=== PATIENT | female | born 1980 | race Caucasian/White ===

== ENCOUNTER → 2017-02-06 | Outpatient (CLI) | payer OTHER | LOC: MC.RAD 13:58 | DX: N63.20 Unspecified lump in the left breast, unspecified quadrant (principal) ==

== ENCOUNTER 2018-10-02 10:17 | Day surgery (SDC) | payer OTHER ==
[~2018-10-02] VITALS: Ht 162.6 cm; Wt 64.5 kg
[2018-10-02] MEDS ORDERED: CYMBALTA 30MG30 MG PO (11:00)
[2018-10-02] MEDS ORDERED: TUMS500 MG PO (11:03)
[2018-10-02] MEDS ORDERED: PROVENTIL0.09 MG/A1 IH (11:04)
[2018-10-02 12:48] VITALS: BP 136/69; PULSE 72; TEMP 97.4
--- NOTE | 2018-10-02 12:52 | NUR ---
Pt taken via cart to OR by MAXINE Richter RN.
[2018-10-02] MEDS ORDERED: PERCOCET 325 MG1 TA2 PO (14:09)
[2018-10-02] MEDS ORDERED: COLACE 100100 MG/CAP PO (14:09)
[2018-10-02 14:40] VITALS: BP 140/74; PULSE 80; TEMP 98.6
--- NOTE | 2018-10-02 14:40 | NUR ---
Pt returned via cart from PACU to [place] [facility]. A&O. Lying on left side. VSS-see flowsheet. brought in to room at this time. x4 surgical site incisions noted with swiftset clean, dry and intact. Denies nausea, reports mild pain in abdomen and feeling bloated. Pt refused intervention at this time. Requested grape juice and apple sauce. Side rails up, call light in reach.
[2018-10-02 14:55] VITALS: BP 122/58; PULSE 79
[2018-10-02 15:10] VITALS: BP 131/72; PULSE 75
[2018-10-02 15:25] VITALS: BP 133/74; PULSE 82
--- NOTE | 2018-10-02 16:00 | NUR ---
Pt tolerated juice, apple sauce and crackers. VSS-see flowsheet. Able to void without difficulty. Incisions remain c/d/i. IV removed, gauze and coban applied. Discharge teaching completed, pt verbalized understanding. Taken via wheelchair to private vehicle for dc home with to drive.
== END 2018-10-02 16:00 | disposition home or self-care (01) ==
LOC: SDCO 10:17
DX: K82.8 Other specified diseases of gallbladder (principal); E78.00 Pure hypercholesterolemia, unspecified; J45.909 Unspecified asthma, uncomplicated; K21.9 Gastro-esophageal reflux disease without esophagitis; M81.0 Age-related osteoporosis without current pathological fracture; Z80.42 Family history of malignant neoplasm of prostate; Z80.0 Family history of malignant neoplasm of digestive organs; F17.210 Nicotine dependence, cigarettes, uncomplicated; F41.9 Anxiety disorder, unspecified; F32.9 Major depressive disorder, single episode, unspecified; M79.7 Fibromyalgia
CPT/HCPCS: J0690; J1100; J1885; J2250; J2405; J2704; J3010; J7120; Q9967

== ENCOUNTER → 2021-09-13 | Outpatient (CLI) | payer OTHER ==
[~2021-09-13] MED LIST: COLACE 100100 MG/CAP PO; CYMBALTA 30MG30 MG PO; PERCOCET 325 MG1 TA2 PO; PROVENTIL0.09 MG/A1 IH; TUMS500 MG PO
== END ==
LOC: MC.RAD 17:00
DX: Z12.31 Encounter for screening mammogram for malignant neoplasm of breast (principal)